=== PATIENT | male | born 1965 | race Caucasian/White ===

== ENCOUNTER 2016-11-06 18:34 | Emergency (ER) | payer OTHER ==
[~2016-11-06] VITALS: Ht 180.3 cm; Wt 95.3 kg
[2016-11-06 23:04] VITALS: BP 130/77
== END 2016-11-06 23:09 | disposition home or self-care (01) ==
LOC: EEVIPCON 18:39 → ER 18:39
DX: S63.616A Unspecified sprain of right little finger, initial encounter (principal); S60.221A Contusion of right hand, initial encounter; M10.9 Gout, unspecified; W17.89XA Other fall from one level to another, initial encounter; Y93.89 Activity, other specified; Y92.143 Cell of prison as the place of occurrence of the external cause; Y99.8 Other external cause status
CPT/HCPCS: 29125; 36415; 73130; 84550